=== PATIENT | male | born 1940 | race Caucasian/White ===

== ENCOUNTER 2020-09-22 22:59 | Emergency (ER) | payer MEDICARE, OTHER ==
[2020-09-22] MEDS ORDERED: Aspirin 81 MG Tab.Chew PO ONE (23:02)
[2020-09-22] MEDS ORDERED: Sodium Chloride 0.9% 10 ML Syringe FLUSH PRN (23:02)
--- NOTE | 2020-09-22 23:08 | EDM.PDOC ---
ED HPI GENERAL MEDICAL PROBLEM - General Chief Complaint: Respiratory Problem Stated Complaint: MEDICAL VIA [facility] Time Seen by Provider: 09/22/20 23:02 Source of Information: Reports: Patient, RN Notes Reviewed History Limitations: Reports: No Limitations - History of Present Illness INITIAL COMMENTS - FREE TEXT/NARRATIVE: 80-year-old gentleman presents emergency department day complaint of shortness of breath he arrives by EMS services. States been ill for about a week he has not had any fevers has been coughing without significant sputum production EMS services were called he was markedly hypoxic upon arrival 78% with audible rales. He did respond to oxygen by the time he arrives to the emergency department he is able to speak in single word sentences. Admits to some chest pain no nausea vomiting no diaphoresis. Right Shoulder Pain Score (Numeric/FACES): 4 - Related Data Allergies Allergy/AdvReac Type Severity Reaction Status Date / Time No Known Allergies Allergy Verified 09/22/20 23:04 Home Meds: Home Meds Albuterol [Ventolin HFA] 2 puff INH ASDIRECTED 09/22/20 [History] Aspirin 81 mg PO DAILY 09/22/20 [History] Magnesium 250 mg PO DAILY 09/22/20 [History] Pantoprazole Sodium [Protonix] 40 mg PO DAILY 09/22/20 [History] Rosuvastatin [Crestor] 0 mg PO DAILY 09/22/20 [History] Vit A/Vit C/Vit E/Zinc/Copper [Preservision] 1 tab PO DAILY 09/22/20 [History] lisinopriL [Lisinopril] 0 mg PO DAILY 09/22/20 [History] Past Medical History Cardiovascular History: Reports: High Cholesterol, Hypertension Respiratory History: Reports: COPD Social & Family History - Tobacco Use Tobacco Use Status *Q: Current Every Day Tobacco User ED ROS GENERAL - Review of Systems Review Of Systems: See Below (while still could be still could be) Constitutional: Reports: Weakness, Fatigue HEENT: Reports: No Symptoms Respiratory: Reports: Shortness of Breath Cardiovascular: Reports: Chest Pain, Dyspnea on Exertion GI/Abdominal: Reports: No Symptoms ED EXAM, GENERAL - Physical Exam Exam: See Below Exam Limited By: No Limitations General Appearance: Alert, Mild Distress Respiratory/Chest: Respiratory Distress, Decreased Breath Sounds, Rhonchi, Wheezing Cardiovascular: Regular Rate, Rhythm, No Murmur GI/Abdominal: Soft, Non-Tender Extremities: No Pedal Edema #1 Interpretation EKG Date: 09/22/20 Time: 23:14 Rhythm: NSR [place]: Normal P-Wave: Present QRS: Normal ST-T: Normal QT: Normal Comparison: NA - No Prior EKG Course - Vital Signs Last Recorded V/S: Last Vital Signs Temp 98 F 09/22/20 23:01 Pulse 76 09/22/20 23:01 Resp 20 09/22/20 23:01 BP 136/77 09/22/20 23:45 Pulse Ox 88 L 09/22/20 23:01 - Orders/Labs/Meds Orders: Active Orders 24 hr Category Date Time Status Cardiac Monitoring [RC] .As Directed Care 09/22/20 23:02 Active EKG Documentation Completion [RC] ASDIRECTED Care 09/22/20 23:03 Active Peripheral IV Care [RC] . DIRECTED Care 09/22/20 23:03 Active Chest 1V Frontal [CR] Stat Exams 09/22/20 23:03 Taken COVID-19/FLU A+B/RSV [MOLEC] Stat Lab 09/22/20 23:00 Received Sodium Chloride 0.9% [Saline Flush] Med 09/22/20 23:02 Active 10 ml FLUSH ASDIRECTED PRN Isolation [COMM] Stat Oth 09/22/20 23:04 Ordered Peripheral IV Insertion Adult [OM.PC] Stat Oth 09/22/20 23:02 Ordered Saline Lock Insert [OM.PC] Stat Oth 09/22/20 23:02 Ordered EKG 12 Lead [EK] Stat Ther 09/22/20 23:03 Ordered Medication Orders Sodium Chloride (Sodium Chloride 0.9% 10 Ml Syringe) 10 ml FLUSH ASDIRECTED PRN PRN Reason: Keep Vein Open Last Admin: 09/22/20 23:35 Dose: 10 ml Documented by: OSIEL Labs: Laboratory Tests 09/22/20 09/22/20 09/22/20 Range/Units 23:00 23:00 23:00 WBC 7.7 (4.5-11.0) K/uL RBC 4.17 L (4.30-5.90) M/uL Hgb 11.7 L (12.0-15.0) g/dL Hct 36.1 L (40.0-54.0) % MCV 87 (80-98) fL MCH 28 (27-31) pg MCHC 32 (32-36) % Plt Count 298 (150-400) K/uL Neut % (Auto) 51.9 (36-66) % Lymph % (Auto) 28.3 (24-44) % Gaines % (Auto) 8.3 H (2-6) % Eos % (Auto) 10.3 H (2-4) % Baso % (Auto) 1.2 H (0-1) % Sodium 143 (140-148) mmol/L Potassium 4.9 (3.6-5.2) mmol/L Chloride 105 (100-108) mmol/L Carbon Dioxide 25 (21-32) mmol/L Anion Gap 13.3 (5.0-14.0) mmol/L BUN 42 H (7-18) mg/dL Creatinine 2.3 H (0.8-1.3) mg/dL Est Cr Clr Drug Dosing 29.05 mL/min Estimated GFR (MDRD) 28 L (>60) Glucose 183 H (74-106) mg/dL Lactic Acid 0.9 (0.4-2.0) mmol/L Calcium 8.8 (8.5-10.1) mg/dL Total Bilirubin 0.4 (0.2-1.0) mg/dL AST 18 (15-37) U/L ALT 19 (12-78) U/L Alkaline Phosphatase 155 H (46-116) U/L Troponin I 0.146 H* (0.000-0.056) ng/mL C-Reactive Protein (0.0-0.3) mg/dL NT-Pro-B Natriuret Pep 35268 H (5-450) pg/mL Total Protein 7.5 (6.4-8.2) g/dL Albumin 3.7 (3.4-5.0) g/dL Globulin 3.8 H (2.3-3.5) g/dL Albumin/Globulin Ratio 1.0 L (1.2-2.2) Procalcitonin ng/mL 09/22/20 09/22/20 Range/Units 23:00 23:00 WBC (4.5-11.0) K/uL RBC (4.30-5.90) M/uL Hgb (12.0-15.0) g/dL Hct (40.0-54.0) % MCV (80-98) fL MCH (27-31) pg MCHC (32-36) % Plt Count (150-400) K/uL Neut % (Auto) (36-66) % Lymph % (Auto) (24-44) % Gaines % (Auto) (2-6) % Eos % (Auto) (2-4) % Baso % (Auto) (0-1) % Sodium (140-148) mmol/L Potassium (3.6-5.2) mmol/L Chloride (100-108) mmol/L Carbon Dioxide (21-32) mmol/L Anion Gap (5.0-14.0) mmol/L BUN (7-18) mg/dL Creatinine (0.8-1.3) mg/dL Est Cr Clr Drug Dosing mL/min Estimated GFR (MDRD) (>60) Glucose (74-106) mg/dL Lactic Acid (0.4-2.0) mmol/L Calcium (8.5-10.1) mg/dL Total Bilirubin (0.2-1.0) mg/dL AST (15-37) U/L ALT (12-78) U/L Alkaline Phosphatase (46-116) U/L Troponin I (0.000-0.056) ng/mL C-Reactive Protein 1.50 H (0.0-0.3) mg/dL NT-Pro-B Natriuret Pep (5-450) pg/mL Total Protein (6.4-8.2) g/dL Albumin (3.4-5.0) g/dL Globulin (2.3-3.5) g/dL Albumin/Globulin Ratio (1.2-2.2) Procalcitonin < 0.05 ng/mL Meds: Medications Generic Name Dose Route Start Last Admin Trade Name Freq PRN Reason Stop Dose Admin Sodium Chloride 10 ml 09/22/20 23:02 09/22/20 23:35 Sodium Chloride 0.9% 10 Ml Syringe FLUSH 10 ml ASDIRECTED PRN Administration Keep Vein Open Discontinued Medications Generic Name Dose Route Start Last Admin Trade Name Freq PRN Reason Stop Dose Admin Aspirin 324 mg 09/22/20 23:02 09/22/20 23:35 Aspirin 81 Mg Tab.Chew PO 09/22/20 23:03 324 mg ONETIME ONE Administration Furosemide 60 mg 09/23/20 00:00 Furosemide 40 Mg/4 Ml Vial IVPUSH 09/23/20 00:01 ONETIME ONE Nitroglycerin 0.4 mg 09/22/20 23:36 09/22/20 23:45 Nitroglycerin 0.4 Mg Tab.Sl SL 09/22/20 23:37 0.4 mg ONETIME ONE Administration Departure - Departure Time of Disposition: 00:21 Disposition: DC/Tfer to Acute Hospital 02 Condition: Fair Clinical Impression: CHF exacerbation Qualifiers: Heart failure type: unspecified Qualified Code(s): I50.9 - Heart failure, unspecified - Discharge Information Referrals: PCP,None [Primary Care Provider] - Forms: ED Department Discharge Sepsis Event Note (ED) - Evaluation Sepsis Screening Result: No Definite Risk - Focused Exam Vital Signs: Vital Signs Temp Pulse Resp BP BP Pulse Ox 09/22/20 23:45 136/77 09/22/20 23:01 98 F 76 20 175/89 H 88 L - My Orders Last 24 Hours: My Active Orders 09/22/20 23:00 COVID-19/FLU A+B/RSV [MOLEC] Stat 09/22/20 23:02 Cardiac Monitoring [RC] .As Directed Sodium Chloride 0.9% [Saline Flush] 10 ml FLUSH ASDIRECTED PRN Peripheral IV Insertion Adult [OM.PC] Stat Saline Lock Insert [OM.PC] Stat 09/22/20 23:03 EKG Documentation Completion [RC] ASDIRECTED Peripheral IV Care [RC] . DIRECTED Chest 1V Frontal [CR] Stat EKG 12 Lead [EK] Stat 09/22/20 23:04 Isolation [COMM] Stat - Assessment/Plan Last 24 Hours: My Active Orders 09/22/20 23:00 COVID-19/FLU A+B/RSV [MOLEC] Stat 09/22/20 23:02 Cardiac Monitoring [RC] .As Directed Sodium Chloride 0.9% [Saline Flush] 10 ml FLUSH ASDIRECTED PRN Peripheral IV Insertion Adult [OM.PC] Stat Saline Lock Insert [OM.PC] Stat 09/22/20 23:03 EKG Documentation Completion [RC] ASDIRECTED Peripheral IV Care [RC] . DIRECTED Chest 1V Frontal [CR] Stat EKG 12 Lead [EK] Stat 09/22/20 23:04 Isolation [COMM] Stat Plan: Assessment Acuity = acute Site and laterality = CHF exacerbation Etiology = unknown Manifestations = none Location of injury = Home Lab values = CBC unremarkable creatinine elevated 2.3 consistent with chronic renal failure stage G4 troponin elevated 0.146 consistent with leak phenomenon BNP markedly elevated 21,253 consistent with fluid overload type pattern procalcitonin is negative CRP slightly elevated 1.5 chest x-ray shows cardiomegaly with fluid overload type pattern EKG demonstrates a sinus rhythm with no ST elevations or depressions he does have left ventricular hypertrophy Q waves in 3 Plan Called and discussed the case with Dr. Han hospitalist at [facility] kindly accepted the patient in transport will be transported via EMS ground he still on 3 L of oxygen maintaining his saturation he has been given 60 mg Lasix IV as well as 1 nitro and aspirin This note was dictated using [email or web address] voice recognition software please call with any questions on syntax or grammar.
[2020-09-22] MEDS ORDERED: Nitroglycerin 0.4 MG Tab.SL SL ONE (23:36)
[2020-09-23] MEDS ORDERED: Furosemide 40 MG/4 ML VIAL IVPUSH ONE
[2020-09-23 00:12] LABS: CORONAVIRUS COVID-19 NAA NEGATIVE (NEGATIVE)
--- NOTE | 2020-09-23 13:05 | CR ---
CHEST: Portable 09/22/2020 at 11:37 PM CLINICAL HISTORY:CHF COMPARISON:None FINDINGS: The heart is enlarged. Pulmonary vascularity is cephalized. There is interstitial edema. There may be a minimal left effusion. There are atherosclerotic changes in the aorta.. Impression: Cardiomegaly and pulmonary edema from CHF
== END 2020-09-23 01:01 ==
LOC: JP.ED 22:59
DX: I11.0 Hypertensive heart disease with heart failure (principal); I50.9 Heart failure, unspecified; E78.00 Pure hypercholesterolemia, unspecified; J44.9 Chronic obstructive pulmonary disease, unspecified; Z79.899 Other long term (current) drug therapy; Z79.82 Long term (current) use of aspirin; Z20.822 Contact with and (suspected) exposure to COVID-19
CPT/HCPCS: 0241U; 36415; 71045; 80053; 83605; 83880; 84145; 84484; 85025; 86140; 93005; 96374; 99285; A9270; J1940

== ENCOUNTER 2020-12-17 12:36 | Emergency (ER) | payer MEDICARE, OTHER ==
--- NOTE | 2020-12-17 12:54 | EDM.PDOC ---
ED HPI GENERAL MEDICAL PROBLEM - General Chief Complaint: Laceration Stated Complaint: right hand INJURY DUE TO A SAW Time Seen by Provider: 12/17/20 12:40 Source of Information: Reports: Patient History Limitations: Reports: No Limitations - History of Present Illness INITIAL COMMENTS - FREE TEXT/NARRATIVE: 80-year-old male was working with a table saw when he accidentally cut the dorsal aspect of his right middle and ring fingers, he has very deep lacerations to the PIP joints exposing the distal end of the proximal phalanx. No other injury. He needs a tetanus booster. He still has sensation to the ring finger, the middle finger is numb but color is good. Onset: Sudden Duration: Hour(s): (Within the last hour) Location: Reports: Upper Extremity, Right Associated Symptoms: Reports: No Other Symptoms Right Finger-Middle Pain Score (Numeric/FACES): 2 - Related Data Allergies Allergy/AdvReac Type Severity Reaction Status Date / Time No Known Allergies Allergy Verified 12/17/20 12:55 Home Meds: Home Meds Albuterol [Ventolin HFA] 2 puff INH ASDIRECTED 09/22/20 [History] Aspirin 81 mg PO DAILY 09/22/20 [History] Magnesium 250 mg PO DAILY 09/22/20 [History] Pantoprazole Sodium [Protonix] 40 mg PO DAILY 09/22/20 [History] Rosuvastatin [Crestor] 0 mg PO DAILY 09/22/20 [History] Vit A/Vit C/Vit E/Zinc/Copper [Preservision] 1 tab PO DAILY 09/22/20 [History] lisinopriL [Lisinopril] 0 mg PO DAILY 09/22/20 [History] Furosemide [Lasix] 0 mg PO DAILY 09/23/20 [History] Past Medical History HEENT History: Reports: Cataract, Impaired Vision, Macular Degeneration Cardiovascular History: Reports: CAD, High Cholesterol, Hypertension, MS, Other (See Below) Respiratory History: Reports: COPD Gastrointestinal History: Reports: GERD Musculoskeletal History: Reports: Fracture - Infectious Disease History Infectious Disease History: Reports: C-Difficile, Mumps, Rheumatic Fever - Past Surgical History HEENT Surgical History: Reports: Cataract Surgery Cardiovascular Surgical History: Reports: AAA Repair, Coronary Artery Stent Social & Family History - Caffeine Use Caffeine Use: Reports: Coffee ED ROS GENERAL - Review of Systems Review Of Systems: See Below Constitutional: Denies: Fever, Chills Respiratory: Denies: Shortness of Breath Cardiovascular: Denies: Chest Pain GI/Abdominal: Denies: Abdominal Pain Neurological: Reports: Paresthesia (Some numbness of the middle finger) ED EXAM, SKIN/RASH Exam: See Below Exam Limited By: No Limitations General Appearance: Alert, No Apparent Distress Head: Atraumatic Neck: Non-Tender Respiratory/Chest: No Respiratory Distress Cardiovascular: Regular Rate, Rhythm Extremities: Other (Exam of the right hand reveals significant injury to the middle and ring fingers. Both of the PIP joints are open with large lacerations over the dorsal aspect of the joints. The middle and ring fingers are gravity dependent, there is no extension capability at all) Neurological: Alert, Oriented Psychiatric: Normal Affect, Normal Mood Course - Vital Signs Last Recorded V/S: Last Vital Signs Temp 97.6 F 12/17/20 13:02 Pulse 75 12/17/20 13:02 Resp 16 12/17/20 13:02 BP 119/81 12/17/20 13:02 Pulse Ox 97 12/17/20 13:02 - Orders/Labs/Meds Meds: Medications Discontinued Medications Generic Name Dose Route Start Last Admin Trade Name Freq PRN Reason Stop Dose Admin Diphtheria/Tetanus/Acell Pertussis 0.5 ml 12/17/20 13:13 12/17/20 13:26 Diphtheria,Pertussis(Acell),Tetanus Vaccine 0.5 Ml Syringe IM 12/17/20 13:14 0.5 ml .ONCE ONE Administration Cefazolin Sodium 1 gm/ Sodium 50 mls @ 100 mls/hr 12/17/20 13:11 12/17/20 13:25 Chloride IV 12/17/20 13:40 100 mls/hr ONETIME ONE Administration - Re-Assessments/Exams Free Text/Narrative Re-Assessment/Exam: 12/17/20 13:25 An IV was started and the patient was given 1 g of Ancef and also a Tdap booster. This is obviously going to need hand surgery, [place], [place] hometown was called initially and suggested referral to [facility] so was contacted. I am awaiting for callback at this time. The wounds were flushed with saline and dressed with saline soaked dressings in a wet-to-dry fashion and a bulk dressing around the hand. X-rays were done which showed likely middle phalynx f xs but the films were limited. 12/17/20 14:24 [facility] had no specialty coverage at this time but [facility] kindly agreed to see the patient. He was discharged with 6 doses of Aledo to take 1 every 2-3 hours and will go directly to the emergency room at [facility] for further evaluation. Departure - Departure Time of Disposition: 14:18 Disposition: DC/Tfer to Other 70 Clinical Impression: Open right hand fracture Qualifiers: Encounter type: initial encounter Qualified Code(s): S62.91XB - Unspecified fracture of right wrist and hand, initial encounter for open fracture - Discharge Information Referrals: PCP,None [Primary Care Provider] - Forms: ED Department Discharge Care Plan Goals: Go directly to [facility] emergency room where you will be evaluated by orthopedic surgery for further care and evaluation of your right hand injury. Keep hand elevated during travel to decrease pain, take 1 pain pill every 2-3 hours if needed. Sepsis Event Note (ED) - Focused Exam Vital Signs: Vital Signs Temp Pulse Resp BP Pulse Ox 12/17/20 13:02 97.6 F 75 16 119/81 97 12/17/20 12:51 97.6 F 75 16 119/81 97
[2020-12-17] MEDS ORDERED: ceFAZolin 1 GM in Sodium Chloride 0.9% 50 ML IV ONE (13:11)
[2020-12-17] MEDS ORDERED: Diphtheria,Pertussis(Acell),Tetanus Vaccine 0.5 ML Syringe IM ONE (13:13)
--- NOTE | 2020-12-17 13:34 | CR ---
Hand Comp Min 3V Rt CLINICAL HISTORY: Table saw injury FINDINGS: Study is limited due to 90 degrees flexion at the PIP P joints of the third and fourth digits. There are bony fragments seen. The donor site could be on either side of the PIP joints. Impression: Limited study with a 90 degree flexion at the third and fourth PIP joints. There are bony fragments seen near both PIP joints which is likely fracture fragment. Donor sites are not definitively identified. Additional views with active extension at the PIP joints would be helpful
== END 2020-12-17 14:18 | disposition other institution (70) ==
LOC: JP.ED 12:36
DX: S62.91XB Unspecified fracture of right hand, initial encounter for open fracture (principal); I25.10 Atherosclerotic heart disease of native coronary artery without angina pectoris; E78.00 Pure hypercholesterolemia, unspecified; I10 Essential (primary) hypertension; I25.2 Old myocardial infarction; J44.9 Chronic obstructive pulmonary disease, unspecified; K21.9 Gastro-esophageal reflux disease without esophagitis; Z79.82 Long term (current) use of aspirin; Z23 Encounter for immunization; Z79.899 Other long term (current) drug therapy; W27.0XXA Contact with workbench tool, initial encounter
CPT/HCPCS: 73130; 90471; 90715; 96365; 99284; J0690

== ENCOUNTER 2025-02-09 17:59 | Emergency (ER) | payer MEDICARE, OTHER ==
[2025-02-09] MEDS ORDERED: Iopamidol 612 MG/ML 100 ML Bottle IV ONE (18:12)
[2025-02-09] MEDS ORDERED: Sodium Chloride 0.9% 10 ML Syringe FLUSH ONE (18:12)
[2025-02-09 18:13] LABS: BASOPHILS ABSOLUTE AUTO 0.05 K/uL (0.00-0.10); BASOPHILS PERCENT AUTO 0.4 % (0.1-1.3); EOSINOPHILS ABSOLUTE AUTO 0.39 K/uL (0.00-0.40); EOSINOPHILS PERCENT AUTO 3.1 % (0.0-5.4); IMMATURE GRAN ABSOLUTE AUTO 0.22 K/uL (0.00-0.23); IMMATURE GRAN PERCENT AUTO 1.8 % (0.0-0.7); LYMPHOCYTES ABSOLUTE AUTO 2.26 K/uL (0.8-3.3); LYMPHOCYTES PERCENT AUTO 18.1 % (11.4-47.7); MONOCYTES ABSOLUTE AUTO 1.18 K/uL (0.20-0.90); MONOCYTES PERCENT AUTO 9.5 % (3.3-12.6); NEUTROPHILS ABSOLUTE AUTO 8.37 K/uL (1.0-7.6); NEUTROPHILS PERCENT AUTO 67.1 % (40.0-78.1); PLATELET COUNT,PLT 292 K/uL (130-375); RED BLOOD CELL COUNT 4.86 M/uL (4.14-5.76); WHITE BLOOD CELL COUNT,WBC 12.5 K/uL (3.2-11.0)
[2025-02-09 18:29] LABS: A/G RATIO 0.9 (1.2-2.2); ALANINE AMINOTRANSFERASE,ALT 27 U/L (12-78); ASPARTATE AMNIOTRANSFERASE,AST 28 U/L (15-37); BILIRUBIN TOTAL 0.7 mg/dL (0.2-1.0); BLOOD UREA NITROGEN,BUN 33 mg/dL (7-18); CARBON DIOXIDE,CO2 26 mmol/L (21-32); CHLORIDE,CL 102 mmol/L (100-108); CREATININE 1.8 mg/dL (0.8-1.3); ESTIMATED GFR 37 mL/min (>60); GLUCOSE RANDOM 97 mg/dL (74-106); POTASSIUM,K 5.3 mmol/L (3.6-5.2); PROTEIN TOTAL,TP 7.9 g/dL (6.4-8.2); SODIUM,NA 138 mmol/L (140-148)
== END 2025-02-09 20:57 | disposition home or self-care (01) ==
LOC: JP.ED 17:59
DX: S22.31XA Fracture of one rib, right side, initial encounter for closed fracture (principal); S02.2XXB Fracture of nasal bones, initial encounter for open fracture; I25.10 Atherosclerotic heart disease of native coronary artery without angina pectoris; E78.00 Pure hypercholesterolemia, unspecified; I10 Essential (primary) hypertension; I25.2 Old myocardial infarction; J44.9 Chronic obstructive pulmonary disease, unspecified; W01.198A Fall on same level from slipping, tripping and stumbling with subsequent striking against other object, initial encounter; Y93.89 Activity, other specified
CPT/HCPCS: 12011; 36415; 70450; 70486; 71260; 72125; 74177; 76377; 80053; 85025; 99284; J2003